=== PATIENT | female | born 1995 | race Caucasian/White ===

== ENCOUNTER 2016-03-29 15:57 | Emergency (ER) | payer MEDICAID ==
[~2016-03-29 15:57] MED LIST: IBUP-232 PO; TIZA2CAP3 PO
[2016-03-29 16:06] VITALS: BP 133/73; PULSE 133; RESP 14; TEMP 98.3; O2SAT 97
[2016-03-29 17:03] LABS: BACTERIA, URINE RARE /hpf; BLOOD, URINE SMALL (NEG); COMMENT (UR) CULT NOT INDICATED; CULTURE IF INDICATED CULT NOT INDICATED; GLUCOSE,URINE NEG (NEG); KETONE, URINE NEG (NEG); MUCUS URINE FEW /lpf (OCC); NITRITE,URINE NEG (NEG); PH, URINE 5.5 (5.0-8.5); SQUAMOUS EPITHELIAL CELL URINE 5 /hpf (0-5); URINE COLOR YELLOW (YELLW/STRAW)
[2016-03-29 17:52] VITALS: BP 114/58; PULSE 91; RESP 19; O2SAT 98
--- NOTE | 2016-03-29 17:59 | PD ---
HPI Chief Complaint: Abdominal Pain Time Seen by Provider: 17:58 Travel History International Travel<30 days: No Contact w/Intl Traveler<30days: No Traveled to known affect area: No History of Present Illness HPI 20-year-old female presents to the emergency department for evaluation of lower abdominal pain for 1 day. Patient states that last night she began to have lower middle abdominal pain radiating to her back that she describes as sharp cramping pain. States it is intermittent. States that when the pain occurs she gets into the position to try to alleviate her pain. States she has tried Tylenol and ibuprofen without improvement of symptoms. She does admit that she has some pressure in this area when she urinates. Denies any painful urination, burning with urination, hematuria, vaginal discharge, vaginal bleeding, fever, chills, nausea, vomiting, diarrhea, constipation. Denies any history of STDs, states that she is sexually active. Denies , last menstrual period 2 weeks ago. Denies any prior abdominal surgeries. No other complaints. PFSH Past Medical History Asthma: Yes Diminished Hearing: No Immunizations Current: Yes ?: Not Social History Alcohol Use: No Tobacco Use: No Substance Use: No Allergies-Medications (Allergen,Severity, Reaction): Coded Allergies: No Known Allergies (Unverified , 03/29/16) Reported Meds & Prescriptions Reported Meds & Active Scripts Active No Active Prescriptions or Reported Medications Review of Systems Except as stated in HPI: all other systems reviewed are Neg Physical Exam Narrative GENERAL: Well-nourished and well-developed pleasant female patient in no acute distress who is nontoxic appearing. SKIN: Warm and dry. HEAD: Normocephalic and atraumatic. EYES: No injection, drainage, or hyphema noted. PERRLA. EOMI. ENT: No nasal drainage noted. Oropharynx is clear. NECK: Supple and the trachea is midline. CARDIOVASCULAR: Regular rate and rhythm. RESPIRATORY: Breath sounds are equal bilaterally with no accessory muscle use, wheezing, rhonchi, or crackles. GASTROINTESTINAL: Mild suprapubic tenderness to palpation. Negative McBurney's point. Negative Lopes sign. No rebound tenderness or guarding. Abdomen is soft and nondistended. GENITOURINARY: Normal external genitalia without lesions or erythema. Vaginal vault without blood or drainage. Cervical os was closed without drainage. No cervical motion tenderness. Uterus nontender and nonenlarged. Bilateral adnexa nontender without masses. MUSCULOSKELETAL: No obvious deformities, swelling, cyanosis, or ecchymosis is present throughout the upper and lower extremities. Patient has full range of motion without any signs of neurovascular compromise. BACK: Negative CVA tenderness. NEUROLOGICAL: Awake, alert, and oriented. Normal speech and gait. Cranial nerves are grossly intact. Data Data Last Documented VS Vital Signs Date Time Temp Pulse Resp B/P Pulse Ox O2 Delivery O2 Flow Rate FiO2 03/29/16 17:52 91 19 114/58 98 Room Air 03/29/16 16:06 98.3 Orders Urinalysis - C+S If Indicated (03/29/16 16:26) Ed Urine Pregnancytest Poc (03/29/16 16:26) Complete Blood Count With Diff (03/29/16 17:58) Comprehensive Metabolic Panel (03/29/16 17:58) Lipase (03/29/16 17:58) Ketorolac Inj (Toradol Inj) (03/29/16 20:15) Gc And Chlamydia Pcr (03/29/16 20:02) Labs Laboratory Tests Test 03/29/16 03/29/16 16:28 18:00 Urine Color YELLOW Urine Turbidity HAZY Urine pH 5.5 Urine Specific [place] 1.031 Urine Protein TRACE mg/dL Urine Glucose (UA) NEG mg/dL Urine Ketones NEG mg/dL Urine Occult Blood SMALL Urine Nitrite NEG Urine Bilirubin NEG Urine Urobilinogen LESS THAN 2.0 MG/DL Urine Leukocyte Esterase MOD Urine RBC 1 /hpf Urine WBC 2 /hpf Urine Squamous Epithelial 5 /hpf Cells Urine Bacteria RARE /hpf Urine Mucus FEW /lpf Microscopic Urinalysis Comment CULT NOT INDICATED White Blood Count 10.0 TH/MM3 Red Blood Count 4.94 MIL/MM3 Hemoglobin 14.3 GM/DL Hematocrit 41.4 % Mean Corpuscular Volume 83.9 FL Mean Corpuscular Hemoglobin 29.0 PG Mean Corpuscular Hemoglobin 34.6 % Concent Red Cell Distribution Width 12.7 % Platelet Count 366 TH/MM3 Mean Platelet Volume 10.2 FL Neutrophils (%) (Auto) 67.7 % Lymphocytes (%) (Auto) 25.3 % Monocytes (%) (Auto) 5.6 % Eosinophils (%) (Auto) 0.9 % Basophils (%) (Auto) 0.5 % Neutrophils # (Auto) 6.8 TH/MM3 Lymphocytes # (Auto) 2.5 TH/MM3 Monocytes # (Auto) 0.6 TH/MM3 Eosinophils # (Auto) 0.1 TH/MM3 Basophils # (Auto) 0.0 TH/MM3 CBC Comment DIFF FINAL Differential Comment Sodium Level 140 MEQ/L Potassium Level 3.9 MEQ/L Chloride Level 109 MEQ/L Carbon Dioxide Level 24.8 MEQ/L Anion Gap 6 MEQ/L Blood Urea Nitrogen 13 MG/DL Creatinine 0.82 MG/DL Estimat Glomerular Filtration 90 ML/MIN Rate Random Glucose 91 MG/DL Calcium Level 8.9 MG/DL Total Bilirubin 0.2 MG/DL Aspartate Amino Transf 10 U/L (AST/SGOT) Alanine Aminotransferase 21 U/L (ALT/SGPT) Alkaline Phosphatase 82 U/L Total Protein 7.7 GM/DL Albumin 4.1 GM/DL Lipase 399 U/L [facility] Medical Decision Making Medical Screen Exam Complete: Yes Emergency Medical Condition: Yes Differential Diagnosis UTI versus STI versus PID Narrative Course 20-year-old female presents to the emergency department for evaluation of suprapubic abdominal pain for 1 day. Patient is afebrile. Initially patient's heart rate was noted to be quite tachycardic at 133 bpm. It is reassessed and noted to be 93 beats per minute. Otherwise vital signs are stable. She has some suprapubic tenderness but overall abdominal examination is benign. She is describing a pain that radiates from the suprapubic region to her back bilaterally. ED urine test is negative. CBC is unremarkable. CMP is unremarkable. Lipase is minimally elevated at 399. Urinalysis shows small occult blood, moderate leukocyte esterase, rare bacteria and few mucus. Pelvic examination is unremarkable. This is likely secondary to urinary tract infection. Patient will be treated with Keflex. Discussed supportive care and when to return to the emergency department. Patient verbalizes understanding and agreement with treatment plan. Diagnosis Primary Impression: Urinary tract infection Qualified Code: N39.0 - Urinary tract infection without hematuria, site unspecified Referrals: Primary Care Physician Patient Instructions: General Instructions Additional Instructions: Take medications as prescribed with food and a full glass of water. Follow-up with your Primary Care Physician. Return to the ED for any acute worsening of symptoms. Med/Other Pt SpecificInfo: Prescription(s) given Scripts Naproxen 500 Mg [id number] Mg PO BID 7 Days Ref 0 Prov:Gerhard Link MD 03/29/16 Cephalexin (Keflex)500 Mg [id number] Mg PO Q12H 7 Days Ref 0 Prov:Gerhard Link MD 03/29/16 Disposition: 01 DISCHARGE HOME Condition: Stable Jennifer Quiroz Mar 29, 2016 17:59
[2016-03-29 18:35] LABS: AUTOMATED NEUTROPHIL # 6.8 TH/MM3 (1.8-7.7); BASOPHIL % 0.5 % (0.0-2.0); EOSINOPHIL # 0.1 TH/MM3 (0-0.4); EOSINOPHIL % 0.9 % (0.0-4.0); HEMATOCRIT 41.4 % (35.0-46.0); HEMO FLAGS DIFF FINAL; LYMPH % 25.3 % (9.0-44.0); LYMPHOCYTE # 2.5 TH/MM3 (1.0-4.8); MEAN CELL VOLUME 83.9 FL (80.0-100.0); MEAN CORPUSCULAR HGB CONC 34.6 % (32.0-36.0); MONO % 5.6 % (0.0-8.0); NEUT % 67.7 % (16.0-70.0); PLATELET COUNT 366 TH/MM3 (150-450); RED BLOOD COUNT 4.94 MIL/MM3 (4.00-5.30); RED CELL DISTRIBUTION WIDTH 12.7 % (11.6-17.2)
[2016-03-29 18:45] LABS: ALT (GPT) 21 U/L (9-42); ANION GAP 6 MEQ/L (5-15); AST (GOT) 10 U/L (16-38); BICARBONATE 24.8 MEQ/L (21.0-32.0); BLOOD UREA NITROGEN 13 MG/DL (7-18); CHLORIDE 109 MEQ/L (98-107); GLOMERULAR FILTRATION RATE 90 ML/MIN (>89); POTASSIUM 3.9 MEQ/L (3.5-5.1); SODIUM (NA) 140 MEQ/L (136-145)
[2016-03-29 18:48] LABS: ALKALINE PHOSPHATASE 82 U/L (45-117); TOTAL BILIRUBIN ADULT 0.2 MG/DL (0.2-1.0)
[2016-03-29] MEDS ORDERED: NAPR500T PO (20:03)
[2016-03-29] MEDS ORDERED: CEPH-460 PO (20:03)
[2016-03-29] MEDS ORDERED: KETOROLAC TROMETHAMINE 60 MG/2 ML (IM) VIAL IM ONE (20:15)
[2016-03-29 23:09] LABS: CHLAMYDIA PCR NOT DETECTED (NOT DETECT); NEISSERIA PCR NOT DETECTED (NOT DETECT)
== END 2016-03-29 20:54 | disposition home or self-care (01) ==
LOC: NEPB 15:57
DX: N39.0 Urinary tract infection, site not specified (principal)
CPT/HCPCS: 80053; 81001; 83690; 84703; 85025; 87491; 87591; 96372; 99284; J1885

== ENCOUNTER 2016-06-24 20:49 | Emergency (ER) | payer MEDICAID ==
[~2016-06-24] VITALS: Ht 160 cm; Wt 58.0 kg
[~2016-06-24 20:49] MED LIST changes: +CEPH-460 PO; -IBUP-232 PO; +NAPR500T PO; -TIZA2CAP3 PO
[2016-06-24 20:51] VITALS: BP 127/77; PULSE 120; RESP 16; TEMP 98; O2SAT 99
[2016-06-24 21:50] LABS: BACTERIA, URINE RARE /hpf; BLOOD, URINE MOD (NEG); COMMENT (UR) CULT NOT INDICATED; CULTURE IF INDICATED CULT NOT INDICATED; GLUCOSE,URINE NEG (NEG); KETONE, URINE NEG (NEG); MUCUS URINE MOD /lpf (OCC); NITRITE,URINE NEG (NEG); SQUAMOUS EPITHELIAL CELL URINE 2 /hpf (0-5); URINE COLOR YELLOW (YELLW/STRAW)
[2016-06-24] MEDS ORDERED: SODIUM CHLOR 0.9% 1000 ML INJ 1,000 ML IV SCH (21:51)
[2016-06-24] MEDS ORDERED: MORPHINE SULFATE 4 MG/ML INJ IV PUSH ONE (22:00)
[2016-06-24] MEDS ORDERED: ONDANSETRON HCL 4 MG/2 ML VIAL IVP ONE (22:00)
[2016-06-24] MEDS ORDERED: ACETAMINOPHEN/HYDROcodone 325 MG/5 MG TAB PO ONE (22:15)
[2016-06-24 22:22] VITALS: BP 108/58; PULSE 85; RESP 18; O2SAT 97
[2016-06-24 22:25] LABS: AUTOMATED NEUTROPHIL # 5.9 TH/MM3 (1.8-7.7); BASOPHIL # 0.1 TH/MM3 (0-0.2); BASOPHIL % 0.7 % (0.0-2.0); EOSINOPHIL # 0.1 TH/MM3 (0-0.4); HEMATOCRIT 40.6 % (35.0-46.0); HEMO FLAGS DIFF FINAL; LYMPH % 26.4 % (9.0-44.0); LYMPHOCYTE # 2.4 TH/MM3 (1.0-4.8); MEAN CORPUSCULAR HEMOGLOBIN 28.4 PG (27.0-34.0); MEAN CORPUSCULAR HGB CONC 33.8 % (32.0-36.0); NEUT % 65.9 % (16.0-70.0); PLATELET COUNT 300 TH/MM3 (150-450); RED BLOOD COUNT 4.83 MIL/MM3 (4.00-5.30); RED CELL DISTRIBUTION WIDTH 12.6 % (11.6-17.2)
[2016-06-24 22:42] LABS: ANION GAP 7 MEQ/L (5-15); AST (GOT) 13 U/L (16-38); BICARBONATE 27.3 MEQ/L (21.0-32.0); BLOOD UREA NITROGEN 14 MG/DL (7-18); CHLORIDE 107 MEQ/L (98-107); GLOMERULAR FILTRATION RATE 97 ML/MIN (>89); SODIUM (NA) 141 MEQ/L (136-145)
--- NOTE | 2016-06-24 22:42 | PD ---
HPI Chief Complaint: Complaint Time Seen by Provider: 22:36 Travel History International Travel<30 days: No Contact w/Intl Traveler<30days: No Traveled to known affect area: No History of Present Illness HPI 21-year-old female that presents to the ED for evaluation of lower pelvic pain with urination as well as flank pain. Per patient she's had this for the past 2 days. Per patient she's had symptoms like this before and usually related to UTIs. Per patient she's had UTI in generally and she was seen here and was given antibiotics which she did not finish them. Per patient her symptoms are always similar. Denies any vaginal discharge but does state that she is currently on her period. She denies any possibility of . She denies any STD exposure. K chest pain or shortness of breath. No fevers chills or sweats. Per patient the pain is significantly 8 out of 10. Does not radiate and stays mainly on the mid pelvic area. Patient states that he gets worse when she feels like she has to urinate. She has urgency. No dysuria however. She denies any fevers chills or sweats. No nausea or vomiting. PFSH Past Medical History Asthma: Yes Diminished Hearing: No Immunizations Current: Yes ?: Not LMP: 3 WKS AGO Social History Alcohol Use: No Tobacco Use: No (1 PACK Q 2D) Substance Use: No Allergies-Medications (Allergen,Severity, Reaction): Coded Allergies: Toradol (Verified Allergy, Mild, RASH, 06/24/16) Reported Meds & Prescriptions Reported Meds & Active Scripts Active No Active Prescriptions or Reported Medications Review of Systems Except as stated in HPI: all other systems reviewed are Neg Physical Exam Narrative GENERAL: SKIN: Warm and dry. HEAD: Atraumatic. Normocephalic. EYES: Pupils equal and round. No scleral icterus. No injection or drainage. ENT: No nasal bleeding or discharge. Mucous membranes pink and moist. Tongue is midline. No uvula deviation. NECK: Trachea midline. No JVD. CARDIOVASCULAR: Regular rate and rhythm. No murmurs, S3, S4. RESPIRATORY: No accessory muscle use. Clear to auscultation. Breath sounds equal bilaterally. GASTROINTESTINAL: Abdomen soft, non-tender, nondistended. Hepatic and splenic margins not palpable. Pelvic exam deferred by patient. No CVA tenderness. MUSCULOSKELETAL: Extremities without clubbing, cyanosis, or edema. No obvious deformities. Full range of motion of the upper and lower extremities bilaterally. 2+ pulses bilaterally. NEUROLOGICAL: Awake and alert. No obvious cranial nerve deficits. Motor grossly within normal limits. Five out of 5 muscle strength in the arms and legs. Normal speech. PSYCHIATRIC: Appropriate mood and affect; insight and judgment normal. Data Data Last Documented VS Vital Signs Date Time Temp Pulse Resp B/P Pulse Ox O2 Delivery O2 Flow Rate FiO2 06/24/16 22:22 85 18 108/58 97 Room Air 06/24/16 20:51 98.0 Orders Urinalysis - C+S If Indicated (06/24/16 21:29) Ed Urine Pregnancytest Poc (06/24/16 21:29) Complete Blood Count With Diff (06/24/16 21:51) Comprehensive Metabolic Panel (06/24/16 21:51) Lipase (06/24/16 21:51) Iv Access Insert/Monitor (06/24/16 21:51) Morphine Inj (Morphine Inj) (06/24/16 22:00) Ondansetron Inj (Zofran Inj) (06/24/16 22:00) Sodium Chlor 0.9% 1000 Ml Inj (Ns 1000 M (06/24/16 21:51) Acetamin-Hydrocod 325-5 Mg ([place] 5-325 (06/24/16 22:15) Labs Laboratory Tests Test 06/24/16 06/24/16 21:32 22:08 Urine Color YELLOW Urine Turbidity CLEAR Urine pH 6.0 Urine Specific [place] 1.033 Urine Protein TRACE mg/dL Urine Glucose (UA) NEG mg/dL Urine Ketones NEG mg/dL Urine Occult Blood MOD Urine Nitrite NEG Urine Bilirubin NEG Urine Urobilinogen 2.0 MG/DL Urine Leukocyte Esterase NEG Urine RBC 7 /hpf Urine WBC 1 /hpf Urine Squamous Epithelial 2 /hpf Cells Urine Bacteria RARE /hpf Urine Mucus MOD /lpf Microscopic Urinalysis Comment CULT NOT INDICATED White Blood Count 9.0 TH/MM3 Red Blood Count 4.83 MIL/MM3 Hemoglobin 13.7 GM/DL Hematocrit 40.6 % Mean Corpuscular Volume 84.0 FL Mean Corpuscular Hemoglobin 28.4 PG Mean Corpuscular Hemoglobin 33.8 % Concent Red Cell Distribution Width 12.6 % Platelet Count 300 TH/MM3 Mean Platelet Volume 10.7 FL Neutrophils (%) (Auto) 65.9 % Lymphocytes (%) (Auto) 26.4 % Monocytes (%) (Auto) 6.0 % Eosinophils (%) (Auto) 1.0 % Basophils (%) (Auto) 0.7 % Neutrophils # (Auto) 5.9 TH/MM3 Lymphocytes # (Auto) 2.4 TH/MM3 Monocytes # (Auto) 0.5 TH/MM3 Eosinophils # (Auto) 0.1 TH/MM3 Basophils # (Auto) 0.1 TH/MM3 CBC Comment DIFF FINAL Differential Comment Sodium Level 141 MEQ/L Potassium Level 4.0 MEQ/L Chloride Level 107 MEQ/L Carbon Dioxide Level 27.3 MEQ/L Anion Gap 7 MEQ/L Blood Urea Nitrogen 14 MG/DL Creatinine 0.76 MG/DL Estimat Glomerular Filtration 97 ML/MIN Rate Random Glucose 87 MG/DL Calcium Level 8.9 MG/DL Total Bilirubin 0.3 MG/DL Aspartate Amino Transf 13 U/L (AST/SGOT) Alanine Aminotransferase 20 U/L (ALT/SGPT) Alkaline Phosphatase 78 U/L Total Protein 7.9 GM/DL Albumin 4.2 GM/DL Lipase 407 U/L [facility] Medical Decision Making Medical Screen Exam Complete: Yes Emergency Medical Condition: Yes Medical Record Reviewed: Yes Interpretation(s) CBC Diagram 06/24/16 22:08 UA show hematuria and some bacteria otherwise unremarkable. Differential Diagnosis Cystitis versus pelvic pain versus flank pain Narrative Course 21-year-old female that presents to the ED for evaluation of possible UTI. Patient was properly examined and was found to have signs and symptoms consistent appears to be possible UTI. Labs were ordered. I do recommend pelvic exam to make sure patient doesn't have any other sign of acute disease but she declines at this time. She prefers not to do this. She understands risks including possible missing severe illness and she still prefers not to do this. Labs were drawn and urine that shows signs of hematuria and possible bacteria. No obvious UTI however. Otherwise slightly elevate lipase which she has had before, but with no epigastric or umbilical pain. I did review the patient's EMR and she had similar symptoms in March and during that time she had a urine with similar results. Per patient at that time she was treated with Keflex and that made her better. She will asked to try this. At this time I will treat her with Keflex, naproxen, Pyridium. She was instructed to come back to the ED for symptoms do not resolve in the next 24-48 hours. See ED for any worsening symptoms. Drink plenty of fluids. Case was discussed with my attending Dr Mari who is in agreement with plan. Diagnosis Primary Impression: Urinary tract infection Qualified Code: N30.01 - Acute cystitis with hematuria Patient Instructions: General Instructions Additional Instructions: Take medications as prescribed. Follow with PCP. See ED for any worsening symptoms. Drink plenty of fluids. If symptoms do not in proving the next 48 hours for worsening, to the ED. Med/Other Pt SpecificInfo: Prescription(s) given Scripts Phenazopyridine (Pyridium)100 Mg [id number] Mg PO Q8HR #15 TAB Ref 0 Prov:Antoine Mari MD 06/24/16 Cephalexin (Keflex)500 Mg [id number] Mg PO Q12H 7 Days Ref 0 Prov:Antoine Mari MD 06/24/16 Naproxen 500 Mg [id number] Mg PO BID 7 Days Ref 0 Prov:Antoine Mari MD 06/24/16 Disposition: 01 DISCHARGE HOME Condition: Stable Hank Kelley Jun 24, 2016 22:42
[2016-06-24 22:44] LABS: ALKALINE PHOSPHATASE 78 U/L (45-117); ALT (GPT) 20 U/L (9-42); TOTAL BILIRUBIN ADULT 0.3 MG/DL (0.2-1.0)
[2016-06-24] MEDS ORDERED: PHEN0.4T PO (22:45)
[2016-06-24] MEDS ORDERED: CEPH-460 PO (22:45)
[2016-06-24] MEDS ORDERED: NAPR500T PO (22:45)
== END 2016-06-24 23:50 | disposition home or self-care (01) ==
LOC: NEPD 20:49
DX: N39.0 Urinary tract infection, site not specified (principal)
CPT/HCPCS: 80053; 81001; 83690; 84703; 85025; 99283

== ENCOUNTER 2016-12-29 17:03 | Emergency (ER) | payer MEDICAID ==
[~2016-12-29] VITALS: Ht 160 cm; Wt 60.0 kg
[~2016-12-29 17:03] MED LIST changes: +PHEN0.4T PO
[2016-12-29 17:04] VITALS: BP 146/73; PULSE 90; RESP 14; TEMP 99; O2SAT 97
== END 2016-12-29 20:41 | disposition left against medical advice (07) ==
LOC: NED 17:03
DX: R10.9 Unspecified abdominal pain (principal)
CPT/HCPCS: 99281

== ENCOUNTER 2017-03-20 15:58 | Emergency (ER) | payer MEDICAID ==
[~2017-03-20] VITALS: Ht 160 cm; Wt 55.0 kg
[~2017-03-20 15:58] MED LIST changes: -NAPR500T PO; +NAPR500T2 PO
[2017-03-20 16:00] VITALS: BP 129/75; PULSE 75; RESP 14; TEMP 97.5; O2SAT 99
--- NOTE | 2017-03-20 16:22 | PD ---
HPI Chief Complaint: Respiratory Symptoms Time Seen by Provider: 16:16 Travel History International Travel<30 days: No Contact w/Intl Traveler<30days: No Traveled to known affect area: No History of Present Illness HPI 21-year-old female presents to emergency Department with complaint of nasal congestion, sore throat, subjective fever and sweats, body aches, cough and wheezing since this morning. History of asthma as a child. Tobacco use. Denies limp and throat, difficulty swallowing, unusual drooling. Nasal congestion started yesterday. Denies ear pain. Denies vomiting, abdominal pain. Took some children's Tylenol for symptom management this morning. No known aggravating or relieving factors. Symptoms are mild in severity. Works with others with similar symptoms. No primary care provider. History of asthma. Allergies to Toradol. Has no other medical complaints. No other modifying factors or associated signs and symptoms. PFSH Past Medical History Asthma: Yes Diminished Hearing: No Immunizations Current: Yes ?: Not LMP: 02/27 Social History Alcohol Use: No Tobacco Use: Yes (1 PACK Q 2D) Substance Use: No Allergies-Medications (Allergen,Severity, Reaction): Coded Allergies: ketorolac (Unverified Allergy, Mild, RASH, 12/29/16) Reported Meds & Prescriptions Reported Meds & Active Scripts Active Review of Systems Except as stated in HPI: all other systems reviewed are Neg Physical Exam Narrative GENERAL: Well-nourished, well-developed female patient, in no acute distress; afebrile, nontoxic-appearing SKIN: Warm and dry. No rash. HEAD: Atraumatic. Normocephalic. EYES: Pupils equal and round. No scleral icterus. No injection or drainage. ENT: Mucosa pink and moist. No erythema or exudates. No uvular edema. No uvular , palatal, or tonsillar deviation. Airway patent. EARS: Bilateral pinnae and external canals appear within normal limits. Bilateral tympanic membranes without erythema, dullness or perforation. NECK: Trachea midline. No lymphadenopathy. CARDIOVASCULAR: Regular rate and rhythm. No murmur appreciated. RESPIRATORY: No accessory muscle use. Mild Wheezing on auscultation of bilateral lower lobes. Breath sounds equal bilaterally. No retractions or tachypnea. No audible wheezing. GASTROINTESTINAL: Abdomen soft, non-tender, nondistended. Hepatic and splenic margins not palpable. Bowel sounds are active 4 quadrants. MUSCULOSKELETAL: No obvious deformities. No clubbing. No cyanosis. No edema. NEUROLOGICAL: Awake and alert. Oriented 3. No obvious cranial nerve deficits. Motor grossly within normal limits. Normal speech. Moves all extremities. 5/5 strength to all extremities. PSYCHIATRIC: Appropriate mood and affect; insight and judgment normal. Data Data Last Documented VS Vital Signs Date Time Temp Pulse Resp B/P (MAP) Pulse Ox O2 Delivery O2 Flow Rate FiO2 03/20/17 16:00 97.5 75 14 129/75 (93) 99 Room Air Orders Orders Chest, Single Ap (03/20/17 16:21) Prednisone (Deltasone) (03/20/17 16:30) Albuterol Neb (Albuterol Neb) (03/20/17 16:30) Influenzae A/B Antigen (03/20/17 16:21) Group A Rapid Strep Screen (03/20/17 16:21) Acetaminophen (Tylenol) (03/20/17 16:30) Strep Culture (Group A) (03/20/17 16:25) MDM Medical Decision Making Medical Screen Exam Complete: Yes Emergency Medical Condition: Yes Medical Record Reviewed: Yes Differential Diagnosis Bronchitis, viral illness, influenza, pneumonia, strep pharyngitis Narrative Course 21-year-old female with cold/flu symptoms that started this morning. Wheezing on auscultation to bilateral lower lungs. No acute distress. Deltasone, albuterol nebulizer, chest x-ray, influenza, rapid strep ordered. 1804: Influenza negative. Chest x-ray with no acute findings. Suspecting bronchitis. Albuterol inhaler, Deltasone, Tessalon Perles prescribed for home. Instructed patient to follow up with primary care provider. Patient verbalizes understanding and agreement with treatment plan. Patient is medically cleared and stable for discharge. Discussed reasons to return to the emergency department. Patient agrees with treatment plan. The patients vital signs are stable and the patient is stable for outpatient follow-up and treatment. Patient discharged home, stable and in no acute distress. Diagnosis Primary Impression: Acute bronchitis Qualified Codes: J20.9 - Acute bronchitis, unspecified Referrals: [facility] Primary Care Physician Patient Instructions: Acute Bronchitis (ED), Cold Symptoms (ED), General Instructions, Safe Use of Cough and Cold Medicines (ED) Departure Forms: Tests/Procedures, Work Release Enter return to work date: Mar 22, 2017 Additional Instructions: Use Albuterol inhaler as prescribed Take oral steroids as prescribed and complete full course Use Tessalon Perles as prescribed to decrease coughing spasms [id number] decongestants or antihistamines as directed and as needed for symptom management Your cough can last 4-6 weeks Drink plenty of fluids to prevent dehydration Use hot air humidifier to decrease cough exacerbation Turn off ceiling fans and sleep with head of bed elevated Avoid triggers such as second hand smoke, dust, known allergens Follow-up with your primary care provider Return to the emergency department immediately with worsening of symptoms Med/Other Pt SpecificInfo: Prescription(s) given Scripts Benzonatate (Tessalon Perles) 100 Mg Cap 100 MG PO TID Y for COUGH for 3 Days, CAP 0 Refills Prov: Jennifer Carbone 03/20/17 Prednisone (Deltasone) 20 Mg Tab 20 MG PO BID for 5 Days, #10 TAB 0 Refills Prov: Jennifer Carbone 03/20/17 Albuterol 18 GM Inh (Ventolin Hfa 18 GM Inh) 90 Mcg/Act Aer 2 PUFF INH Q4-6H Y for SOB/WHEEZING, #1 INHALER 0 Refills Prov: Jennifer Carbone 03/20/17 Disposition: 01 DISCHARGE HOME Condition: Stable Jennifer Carbone Mar 20, 2017 16:22
[2017-03-20] MEDS ORDERED: RESP: ALBUTEROL 2.5 MG/3 ML NEB (SCH) INH ONE (16:30)
[2017-03-20] MEDS ORDERED: predniSONE 20 MG TAB PO ONE (16:30)
[2017-03-20] MEDS ORDERED: ACETAMINOPHEN 325 MG TAB PO ONE (16:30)
--- NOTE | 2017-03-20 17:14 | RADRPT ---
EXAM DATE/TIME: 03/20/2017 16:38 [facility] COMPARISON: No previous studies available for comparison. INDICATIONS : Short of breath and productive cough since this morning. MEDICAL HISTORY : None. SURGICAL HISTORY : None. ENCOUNTER: Initial ACUITY: 1 day PAIN SCORE: 0/10 LOCATION: Bilateral chest FINDINGS: The lungs are clear without infiltrate, nodule, or mass. There is no appreciable pleural effusion fo r technique. Heart and mediastinum are unremarkable. CONCLUSION: No acute cardiopulmonary disease. Amanda Villalba MD on March 20, 2017 at 17:11 Board Certified Radiologist. This report was verified electronically.
[2017-03-20] MEDS ORDERED: VENTAER INH (18:06)
[2017-03-20] MEDS ORDERED: BENZ100 PO (18:06)
[2017-03-20] MEDS ORDERED: PRED-503 PO (18:06)
== END 2017-03-20 18:54 | disposition home or self-care (01) ==
LOC: NEPD 15:58
DX: J20.9 Acute bronchitis, unspecified (principal); J45.909 Unspecified asthma, uncomplicated; F17.200 Nicotine dependence, unspecified, uncomplicated; Z88.5 Allergy status to narcotic agent; Z72.0 Tobacco use
CPT/HCPCS: 71010; 87081; 87804; 87880; 94664; 99284; J7512; J7613